=== PATIENT | male | born 1950 | race Caucasian/White ===

== ENCOUNTER → 2023-07-09 08:48 | Outpatient (BNVA) | payer MEDICARE, BC, SELFPAY | PROVIDERS: PCP Internal Medicine; Referring Provider Internal Medicine; Visit Provider Physical Therapy Assistant | DX: Z12.11 Encounter for screening for malignant neoplasm of colon (principal) ==

== ENCOUNTER 2023-07-20 06:30 | Day surgery (SDC) | payer MEDICARE, BC, SELFPAY ==
--- NOTE | 2023-07-19 11:01 | W.PM.DSUDISC ---
Date of service: 07/20/23 Time of Service: 08:44 Discharge Plan Disposition Patient Disposition: Home Condition: Good Discharge Details Reason For Visit: screening colonoscopy Attending Provider: Darien Hannon Primary Care Provider: Farheen Lopez Home Meds and New Rx's Prescriptions: Continued metoprolol succinate 100 mg tablet extended release 24 hr 100 mg PO DAILY Entresto 24-26 mg tablet 1 tab PO BID atorvastatin 10 mg tablet 10 mg PO DAILY allopurinol 300 mg tablet 300 mg PO DAILY aspirin 81 mg tablet,delayed release (DR/EC) 81 mg PO DAILY amlodipine 10 mg tablet 10 mg PO DAILY torsemide 20 mg tablet 20 mg PO DAILY metformin 1,000 mg tablet 2,000 mg PO DAILY tamsulosin 0.4 mg capsule 0.4 mg PO DAILY meloxicam 7.5 mg tablet 7.5 mg PO DAILY Hold Instructions: Pt Stopped/Never Started glipizide 10 mg tablet 10 mg PO DAILY dapagliflozin propanediol [Farxiga] 5 mg tablet 10 mg PO DAILY Discontinued bisacodyl [Dulcolax (bisacodyl)] 5 mg tablet,delayed release (DR/EC) 5 mg PO ONCE Qty: 4 0RF Rx Instructions: Take per colonoscopy instructions provided by ordering providers office polyethylene glycol 3350 17 gram/dose powder 17 g PO ONCE Qty: 238 0RF Rx Instructions: Take per colonoscopy instructions provided by ordering providers office Discharge Instructions Instructions: Diverticulosis (GEN), Diverticulosis Diet (GEN) Additional Instructions: Gagandeep, we were able to complete your colonoscopy today without any difficulty. Your prep was great, and we could see everything just fine. You have some diverticulosis. Diverticula are weak spots in the muscular part of the colon wall. They typically accumulate as we get older. In some patients, they can get infected and inflamed. When that happens, patients typically experience a fair amount of pain that usually on the left side of their abdomen. During severe cases, patients are often times treated with antibiotics. You also have a small vascular ectasia in your colon. This is kind of like a varicose vein. They can cause bleeding in the large intestine, but absent symptoms, typically we do not do anything about these. I do not think it has anything to worry about. With a negative screening colonoscopy, the recommendation is to have another one in 10 years. We typically recommend that patients get colonoscopies up to age 85. If you have any questions in the meantime, please do not hesitate to call or ask at any point. 1. If tolerated, consume a soft, low fiber diet for 1-2 days. 2[address] Do not drive, drink alcohol, operate machinery, make critical decisions, or do activities that require coordination or balance for 24 hours. 3. Because air was put into your colon during the procedure, expelling air from your rectum (passing gas or farting) is normal. 4. You may not have a bowel movement for 1-3 days because of the colonoscopy prep. This is normal. 5. Go directly to the emergency room if you notice any of the following: Develop chills (warm to touch), or if you have a thermometer and your temperature is above 101 Difficulty breathing or difficultly swallowing Persistent vomiting Severe abdominal pain, other than gas cramps Severe chest pain Black, tarry stools Any bleeding ? exceeding one tablespoon 6. Call your physician if the site where your intravenous was started becomes red, swollen, painful, and warm to touch. 7. Your physician has reviewed your pre-procedure medications. Please continue to take those medications as previously ordered. You will be given specific information/education regarding any changes to your medications before leaving. Activity:: Activity as Tolerated Diet:: As Tolerated Discharge Orders Discharge Orders: Discharge Order (Routine); Ordered 07/19/23 Ordered By: Darien Hannon DS: Diagnosis Discharge Diagnosis (1) Encounter for screening colonoscopy: Status: Acute Asessment and Plan: Negative screening colonoscopy; recommend 10-year interval follow-up
--- NOTE | 2023-07-19 11:02 | COLE_ITS ---
Date of service: 07/20/23 Time of Service: 08:46 Colonoscopy Report Date of procedure: 07/20/23 Pre-op diagnosis general: screening colonoscopy Post-op diagnosis procedure note: other (Diverticulosis, cecal vascular ectasia) Procedure: colonoscopy Surgeon: Darien Hannon Anesthesia Type: General:No Airway Estimated blood loss (mL): 0 Pathology: none sent Complications: None Disposition: same day Indications: Gagandeep is a 72 year old man who needs his next screening colonoscopy Prep: Miralax/Dulcolax Procedure Start Time: 08:22 Procedure End Time: 08:35 Retraction Time: 7 Findings: Sigmoid diverticulosis, cecal vascular ectasia Procedure Description: After the induction of monitored anesthetic care, and with the patient in left lateral decubitus position, I began by performing an external anorectal exam.? Perineum and skin were normal, as was the anal verge.? There was no evidence of external hemorrhoids.? Next, I performed a digital rectal exam.? I did not appreciate any abnormal findings.? Next, I advanced a colonoscope into the rectal vault.? I performed retroflexion.? This was normal.? Using insufflation, I then advanced the colonoscope beyond the rectal folds and into the sigmoid colon before advancing towards the cecum.? There is sigmoid diverticulosis.? The scope was noted to be in the cecum by identification of the ileocecal valve and appendiceal orifice.? Within the cecum, just a few centimeters away from the ileocecal valve is a singular vascular ectasia. I would estimate this to be about 0.75 cm in its greatest dimensions. There is no stigmata of recent bleeding. All of the surrounding tissue appeared totally normal. I then began withdrawing the colonoscope using repeated irrigation as necessary for full evaluation of the colonic mucosa. ?Once the scope was withdrawn to the level of the rectum, great care was taken to examine portions of the rectal folds.? I did not find any signs of polyps or tumors anywhere along the length of the colon. Finally, the scope was withdrawn and the patient was brought to the same-day surgery recovery unit as the anesthetic wore off. ?The findings and instructions were shared with the patient prior to discharge. [place] Bowel Prep [place] Bowel Prep Right Colon: 3 Left Colon: 3 Transverse Colon: 3 Total Score: 9
[2023-07-20 06:55] VITALS: BP 141/71; PULSE 59; RESP 16; TEMP 35.9; O2SAT 97
[2023-07-20] MEDS: Lactated Ringers 1,000 ML 80 ML IV (07:25)
--- NOTE | 2023-07-20 08:13 | W.ANESPRE ---
General Info Date of Service Date Performed: 07/20/23 Height: 5 ft 5 in Weight: 106.1 kg Body Mass Index (BMI): 38.9 Surgical Procedure: Operation Date: 07/20/23 08:20 Proposed Procedure Side Surgeon daniela Hannon MD Meds Allergies and Home Medications Allergies Allergy/AdvReac Type Severity Reaction Status Date / Time No Known Allergies Allergy Unverified 07/20/23 07:20 Home Medication Medication Instructions Recorded glipizide 10 mg tablet 10 mg PO DAILY 06/09/23 meloxicam 7.5 mg tablet 7.5 mg PO DAILY 06/09/23 tamsulosin 0.4 mg capsule 0.4 mg PO DAILY 06/09/23 allopurinol 300 mg tablet 300 mg PO DAILY 07/09/23 amlodipine 10 mg tablet 10 mg PO DAILY 07/09/23 aspirin 81 mg tablet,delayed 81 mg PO DAILY 07/09/23 release atorvastatin 10 mg tablet 10 mg PO DAILY 07/09/23 dapagliflozin propanediol 5 mg 10 mg PO DAILY 07/09/23 tablet (Farxiga) metformin 1,000 mg tablet 2,000 mg PO DAILY 07/09/23 metoprolol succinate 100 mg 100 mg PO DAILY 07/09/23 tablet,extended release 24 hr sacubitril 24 mg-valsartan 26 mg 1 tab PO BID 07/09/23 tablet (Entresto) torsemide 20 mg tablet 20 mg PO DAILY 07/09/23 Current Visit Medications: Current Medications Generic Name Dose Route Start Last Admin Trade Name Freq PRN Reason Stop Dose Admin Hyoscyamine Sulfate 0.125 mg 07/19/23 11:04 Hyoscyamine 0.125 Mg Sl/Oral/Chew SL 08/18/23 11:03 DIRECTED PRN Ringer's Solution 1,000 mls @ 80 mls/hr 07/20/23 06:00 07/20/23 07:25 IV 07/20/23 23:59 80 mls/hr INFUSION KEVIN Administration IV Miscellaneous Supplies 1 each 07/20/23 06:00 Iv Access IV 07/20/23 23:59 DIRECTED KEVIN Ondansetron HCl 4 mg 07/19/23 11:04 Ondansetron 4 Mg/2 Ml Vial IVP 08/18/23 11:03 Q4H PRN PRN Nausea / Vomiting Sodium Chloride 0 ml 07/20/23 06:00 Normal Saline Flush 10 Ml Syr IV 07/20/23 23:59 PRN PRN Sodium Chloride 0 ml 07/20/23 06:00 Normal Saline 10 Ml Vial IJ 07/20/23 23:59 DIRECTED PRN Sterile Water 0 ml 07/20/23 06:00 Water,Injection,Sterile 10 Ml Vial IJ 07/20/23 23:59 DIRECTED PRN PFSH Active Problems Active Problems: Problem Status Onset Code Encounter for screening colonoscopy Z12.11 Essential (primary) hypertension I10 Medical History Medical History Gout Hyperlipidemia Allergic rhinitis Benign prostatic hyperplasia with lower urinary tract symptoms Heart failure Diabetes Surgical History Surgical History History of colonoscopy History of hand surgery right hand tendon repair History of ear surgery inner ear surgery History of hernia repair with testicle removal Tobacco Smoking/Tobacco Use Status: Former Tobacco Use Alcohol Alcohol Intake: current Alcohol intake frequency: a few times a month Alcohol type: hard liquor Substance Use Substance use: Never Substance use type: does not use Vital Signs and Lab Results Vital Signs Most Recent Vital Signs in EMR: Most Recent Vital Signs Temp Pulse Resp BP Pulse Ox 35.9 C L 59 L 16 141/71 H 97 07/20/23 06:55 07/20/23 06:55 07/20/23 06:55 07/20/23 06:55 07/20/23 06:55 Point of Care Results Point of Care Results: Finger Stick Blood Glucose 192 07/20/23 07:00 Lab Results Blood Type / Crossmatch: No Data to Display Complete Blood Count: No Data to Display Complete Metabolic Panel: No Data to Display Liver Function Panel: No Data to Display Coagulation Panel: No Data to Display Cardiac Panel: No Data to Display Arterial Blood Gas: No Data to Display Venous Blood Gas: No Data to Display Pancreas Panel: No Data to Display Thyroid Panel: No Data to Display Infectious Disease: No Data to Display Blood Cultures: No Data to Display Toxicology Panel: No Data to Display Anesthesia Assessment and Plan Anesthesia History Personal History: No History of Anesthesia Complications Family History: No Family History of Anesthesia Complications Exercise Tolerance Exercise Tolerance: Metabolic Equivalents>4 Pertinent Negatives Pertinent Negatives: No Symptoms of GERD and No Major Pulmonary Symptoms or Complaints Cardiac & Pulmonary Exam Cardiac Exam: Normal S1/S2 Heart Sounds Pulmonary Exam: Clear Bilateral Breath Sounds Implantable Cardiac Device Does patient have a Pacemaker or an ICD?: No Airway Exam Known Difficult Airway: No Mallampati Class: 1 Mouth Opening: Normal (> 3cm) Thyromental Distance: Greater than 3 cm Neck Range of Motion: Full ROM Neck Circumference: Thick Teeth Condition: Removable Dentures/Plates Upper and Removable Dentures/Plates Lower ASA Classification ASA Score: ASA 3 Emergency Case?: No NPO Status NPO Status: NPO Clears >2 hours, Solids >8 hours Anesthesia Plan Resuscitation Status: Full Code Anesthesia Technique: MAC Anesthesia Airway Planned: Natural Airway Monitors Used: Standard Monitors Preoperative Comments:: Patient wishes to be MAC then proceed to GA if necessary
[2023-07-20 08:14] VITALS: BMI 38.9
[2023-07-20 08:39] VITALS: BP 106/71; PULSE 55; RESP 16; TEMP 36.2; O2SAT 93
--- NOTE | 2023-07-20 08:51 | W.ANESPOSTOP ---
Postoperative Evaluation Date, Time and Location Date Performed: 07/20/23 Time Performed: 08:51 Patient Location: Day Surgery Unit Vital Signs Most Recent Imported Vital Signs: Most Recent Vital Signs Temp Pulse Resp BP Pulse Ox 36.2 C L 55 L 16 106/71 93 07/20/23 08:39 07/20/23 08:39 07/20/23 08:39 07/20/23 08:39 07/20/23 08:39 Pain Score Most Recent Pain Score: Most Recent Pain Score Pain Level 0 07/20/23 08:39 Assessment Mental Status: Awake (Alert & Oriented to Patient Baseline) Airway and Respiratory Function: Patent airway with normal (patient baseline) respiratory exam Cardiovascular Function: Hemodynamically Stable Hydration Status: Adequately Hydrated Nausea & Vomiting: No Nausea or Vomiting Pain: Pt. Denies Any Pain Peripheral Nerve Block: Patient did not receive a nerve block
[2023-07-20 09:11] VITALS: BP 119/66; PULSE 54; RESP 16; TEMP 36.4; O2SAT 96
== END 2023-07-20 06:31 | disposition home or self-care (01) ==
LOC: SUR 06:31
PROVIDERS: PCP Internal Medicine; Visit Provider Surgery
PROC: 0DJD8ZZ Inspection of Lower Intestinal Tract, Via Natural or Artificial Opening Endoscopic (ICD-10-PCS; CPT 45378; principal; 2023-07-20 08:15)
DX: Z12.11 Encounter for screening for malignant neoplasm of colon (principal); K57.30 Diverticulosis of large intestine without perforation or abscess without bleeding; K55.9 Vascular disorder of intestine, unspecified; I10 Essential (primary) hypertension
CPT/HCPCS: G0121; J2001; J2704